=== PATIENT | female | born 1940 | race Caucasian/White ===

== ENCOUNTER 2018-01-11 11:40 | Day surgery (SDC) | payer MEDICARE ==
[~2018-01-11] VITALS: Ht 162.6 cm; Wt 86.7 kg
[~2018-01-11 11:40] MED LIST: ASPI81CH; GLUCOSAMINE1000 MG; K-Dur20 MEQ; METFORMIN HCL500 MG; MYRBETRIQ25 MG; NAPR220; Triamterene W/1 EACH
== END 2018-01-11 14:24 | disposition home or self-care (01) ==
LOC: ORSCSDS 11:40
PROVIDERS: Orthopaedic Surgery
PROC: 3E0R33Z Introduction of Anti-inflammatory into Spinal Canal, Percutaneous Approach (ICD-10-PCS; principal; 2018-01-11 13:00)
DX: M51.16 Intervertebral disc disorders with radiculopathy, lumbar region (principal); M48.061 Spinal stenosis, lumbar region without neurogenic claudication; E11.9 Type 2 diabetes mellitus without complications; I10 Essential (primary) hypertension; Z87.891 Personal history of nicotine dependence; E66.9 Obesity, unspecified; Z68.39 Body mass index [BMI] 39.0-39.9, adult; Z79.82 Long term (current) use of aspirin; Z79.899 Other long term (current) drug therapy
CPT/HCPCS: J1040

== ENCOUNTER → 2018-11-29 | Outpatient (CLI) | payer MEDICARE ==
[~2018-11-29] MED LIST changes: +Aspir 8181 MG PO; +CALCIUM CITRAT1 EAC3 PO; +CLOB.05TO; +Dyazide 37.5-21 EACH PO; +GABA300 PO; +Glucosamine &1 EACH PO; +K-Dur20 MEQ PO; +METF500C PO; +MYRBETRIQ50 MG PO; +NAPR220 PO
== END | disposition home or self-care (01) ==
LOC: PLD 07:17 → LAB SHORT 07:17
DX: D04.0 Carcinoma in situ of skin of lip (principal)
CPT/HCPCS: 88305

== ENCOUNTER → 2019-01-28 | Outpatient (CLI) | payer MEDICARE | END | disposition home or self-care (01) | LOC: PLD 08:43 → LAB SHORT 08:43 | DX: D48.5 Neoplasm of uncertain behavior of skin (principal) | CPT/HCPCS: 88305 ==

== ENCOUNTER → 2019-02-07 | Outpatient (CLI) | payer MEDICARE | END | disposition home or self-care (01) | LOC: LAB SHORT 07:38 → PLD 07:38 → LAB SHORT 02-08 07:38 | DX: D04.0 Carcinoma in situ of skin of lip (principal) | CPT/HCPCS: 88305 ==

== ENCOUNTER 2019-05-01 12:25 | Day surgery (SDC) | payer MEDICARE ==
[~2019-05-01] VITALS: Ht 160 cm; Wt 83.9 kg
--- NOTE | 2019-05-01 13:36 | NUR ---
05/01/19 5999 Lara Orozco PT RESTING COMFORTABLY IN BED, CALL LIGHT WITHIN REACH. FAMILY AT BEDSIDE. DENIES NEEDS AT THIS TIME.
== END 2019-05-01 15:00 | disposition home or self-care (01) ==
LOC: ORSCSDS 12:25
PROVIDERS: Ophthalmology
PROC: 080PXZZ Alteration of Left Upper Eyelid, External Approach (ICD-10-PCS; principal; 2019-05-01 14:00)
PROC: 080NXZZ Alteration of Right Upper Eyelid, External Approach (ICD-10-PCS; principal; 2019-05-01 14:00)
DX: H02.831 Dermatochalasis of right upper eyelid (principal); H02.834 Dermatochalasis of left upper eyelid; E11.9 Type 2 diabetes mellitus without complications; Z87.891 Personal history of nicotine dependence; Z79.84 Long term (current) use of oral hypoglycemic drugs; E66.9 Obesity, unspecified; Z68.32 Body mass index [BMI] 32.0-32.9, adult
CPT/HCPCS: 82947; J0171; J2250; J2704; J3010; J7120

== ENCOUNTER → 2019-12-16 | Outpatient (CLI) | payer MEDICARE ==
[2019-12-16 13:29] LABS: BASOPHILS ABSOLUTE AUTO 0.06 K/mm3 (0.00-0.23); BASOPHILS PERCENT AUTO 1 % (0-2); EOSINOPHILS ABSOLUTE AUTO 0.18 K/mm3 (0.00-0.68); EOSINOPHILS PERCENT AUTO 2 % (0-6); Hematocrit 43.4 % (33.0-51.0); IMMATURE GRAN ABSOLUTE AUTO 0.01 K/mm3 (0.00-0.10); IMMATURE GRAN PERCENT AUTO 0 % (0-1); LYMPHOCYTES ABSOLUTE AUTO 1.67 K/mm3 (0.84-5.20); LYMPHOCYTES PERCENT AUTO 20 % (21-46); MONOCYTES PERCENT AUTO 10 % (4-13); Mean Corpuscular HGB 30.4 pg (26.0-34.0); Mean Corpuscular HGB Conc 32.3 g/dL (31.5-36.5); Mean Corpuscular Volume 94 fL (80-100); Mean Platelet Volume 11.8 fL (9.1-12.4); NEUTROPHILS ABSOLUTE AUTO 5.63 K/mm3 (1.96-9.15); NEUTROPHILS PERCENT AUTO 67 % (41-73); Platelet Count 232 K/mm3 (150-400); RDW Coefficient Variation 13.2 % (11.7-14.2); RDW Standard Deviation 45.1 fL (35.1-46.3); Red Blood Cell Count 4.61 M/mm3 (3.80-5.20); White Blood Cell Count 8.35 K/mm3 (4.00-11.30)
[2019-12-16 13:39] LABS: CHOL/HDL RATIO 2.5; Cholesterol 142 mg/dL (50-200); HDL Cholesterol 56 mg/dL (>39); Low Density Lipoprotein Chol 57 mg/dL (0-110); Triglycerides 145 mg/dL (30-160); Very Low Density Lipoprot Chol 29 mg/dL (6-32)
[2019-12-16 13:48] LABS: Alanine Aminotransfer (ALT/SGP 34 U/L (12-78); Albumin, Blood 3.4 g/dL (3.4-5.0); Albumin/Globulin Ratio 0.9 (0.8-1.8); Alk Phos 69 U/L (50-136); Anion Gap 7 mmol/L (6-16); Aspartate Aminotrans (AST/SGOT 32 U/L (12-37); Bilirubin, Total 0.4 mg/dL (0.1-1.0); Blood Urea Nitrogen 21 mg/dL (8-24); Bun/Creatinine Ratio 26.9 (12.0-20.0); CO2, Blood 27 mmol/L (21-32); Calcium, Blood 8.7 mg/dL (8.5-10.1); Chloride, Blood 106 mmol/L (98-108); Creatinine, Blood 0.78 mg/dL (0.40-1.00); Globulin, Blood 3.7 g/dL (2.2-4.0); Glomerular Filtration Rate >60 (60-); Glucose, Blood 150 mg/dL (70-99); Potassium, Blood 3.4 mmol/L (3.5-5.5); Sodium, Blood 140 mmol/L (136-145); Total Protein, Blood 7.1 g/dL (6.4-8.2)
== END | disposition home or self-care (01) ==
LOC: LAB SHORT 10:10 → LAB 10:10
PROVIDERS: Family Medicine
DX: E87.6 Hypokalemia (principal); E11.9 Type 2 diabetes mellitus without complications; D64.9 Anemia, unspecified
CPT/HCPCS: 80053; 80061; 83036; 85025

== ENCOUNTER → 2019-12-17 | Outpatient (CLI) | payer MEDICARE | END | disposition home or self-care (01) | LOC: LAB 12:49 → LAB SHORT 12:49 | DX: E11.9 Type 2 diabetes mellitus without complications (principal) | CPT/HCPCS: 82043 ==

== ENCOUNTER → 2020-06-15 | Outpatient (CLI) | payer MEDICARE | LOC: LAB 11:09 → LAB SHORT 11:09 | DX: E11.9 Type 2 diabetes mellitus without complications (principal); R30.0 Dysuria | CPT/HCPCS: 36415; 83036; 87077; 87086; 87186 ==

== ENCOUNTER → 2022-01-21 | Outpatient (CLI) | payer MEDICARE | END | disposition home or self-care (01) | LOC: LAB SHORT 12:18 | DX: E11.9 Type 2 diabetes mellitus without complications (principal) | CPT/HCPCS: 82043 ==

== ENCOUNTER → 2022-12-12 | Outpatient (CLI) | payer MEDICARE ==
[~2022-12-12] MED LIST changes: +CEPH500 PO
== END | disposition home or self-care (01) ==
LOC: LAB 12:00 → LAB SHORT 12:00
DX: R30.0 Dysuria (principal)
CPT/HCPCS: 87077; 87086; 87186

== ENCOUNTER → 2022-12-23 | Outpatient (CLI) | payer MEDICARE | END | disposition home or self-care (01) | LOC: LAB SHORT 12:21 → LAB 12:21 | DX: R30.0 Dysuria (principal) | CPT/HCPCS: 87086 ==

== ENCOUNTER → 2023-09-05 | Outpatient (CLI) | payer MEDICARE | LOC: LAB 12:13 → LAB SHORT 12:13 | DX: R30.0 Dysuria (principal) | CPT/HCPCS: 87077; 87086; 87186 ==

== ENCOUNTER → 2023-09-13 | Outpatient (CLI) | payer MEDICARE | END | disposition home or self-care (01) | LOC: LAB SHORT 17:00 → LAB 17:00 | DX: R30.0 Dysuria (principal) | CPT/HCPCS: 87077; 87086; 87186 ==

== ENCOUNTER 2024-04-18 08:47 | Day surgery (SDC) | payer MEDICARE ==
[~2024-04-18] VITALS: Ht 162.6 cm; Wt 78.4 kg
[~2024-04-18 08:47] MED LIST changes: +Balanced Salt Epinephrine Irrigation Solution 500 mL IR SCH; +Lidocaine HCl/Pf 1% 5 ML VIAL XX SCH; +Moxifloxacin HCL 0.5 MG/0.1 ML 0.4MLSYR RIGHTEYE SCH; +NS 500 ML IV ONE; +PHENYLEPHRINE\\TROPICAMIDE\\TETRACAINE OPHTHALMIC DILATING SOLN RIGHTEYE PRN; +Povidone-Iodine 450 DROP/30 ML Solution RIGHTEYE SCH; +Triamcinolone Inj Susp 40 MG / ML 1ML Vial INJ SCH; +Triamcinolone Inj Susp 40 MG / ML 1ML Vial ONE
[2024-04-18] MEDS ORDERED: B12-FOLIC ACID1 EACH (09:18)
[2024-04-18] MEDS ORDERED: Lactated Ringer's 1,000 ML IV ONE (09:20)
[2024-04-18] MEDS ORDERED: Midazolam HCl 1MG / ML 2ML Vial ONE (09:33)
[2024-04-18] MEDS ORDERED: FentaNYL Citrate 50 MCG/ML 2 ML Injection ONE (09:35)
[2024-04-18] MEDS ORDERED: NS 500 ML IV ONE (09:44)
--- NOTE | 2024-04-18 11:48 | NUR ---
04/18/24 1148 Isaías Win PT INSTRUCTED TO MONITOR B/P AT HOME AND FOLLOW UP WITH PCP NEEDED.
[2024-04-18 11:49] VITALS: BP 107/57
== END 2024-04-18 10:16 | disposition home or self-care (01) ==
LOC: ORSCSDS 08:47
PROVIDERS: Ophthalmology
PROC: 08RJ3JZ Replacement of Right Lens with Synthetic Substitute, Percutaneous Approach (ICD-10-PCS; principal; 2024-04-18 10:00)
DX: E11.36 Type 2 diabetes mellitus with diabetic cataract (principal); H25.813 Combined forms of age-related cataract, bilateral; F41.9 Anxiety disorder, unspecified; F32.A Depression, unspecified; K21.9 Gastro-esophageal reflux disease without esophagitis; I10 Essential (primary) hypertension; Z79.82 Long term (current) use of aspirin; Z79.899 Other long term (current) drug therapy
CPT/HCPCS: J2250; J3010; J3301; J7040; J7120; V2632

== ENCOUNTER → 2025-02-11 | Outpatient (CLI) | payer MEDICARE ==
[~2025-02-11] MED LIST changes: +B-12500 MC2 PO; +B12-FOLIC ACID1 EACH; -Balanced Salt Epinephrine Irrigation Solution 500 mL IR SCH; +CALCIUM; +LOSARTAN POTASS25 M2 PO; -Lidocaine HCl/Pf 1% 5 ML VIAL XX SCH; -Moxifloxacin HCL 0.5 MG/0.1 ML 0.4MLSYR RIGHTEYE SCH; -NS 500 ML IV ONE; -PHENYLEPHRINE\\TROPICAMIDE\\TETRACAINE OPHTHALMIC DILATING SOLN RIGHTEYE PRN; +PREVAGEN; -Povidone-Iodine 450 DROP/30 ML Solution RIGHTEYE SCH; +SUPER B-50 COM1 EACH; +THERA-D2000 UNIT PO; -Triamcinolone Inj Susp 40 MG / ML 1ML Vial INJ SCH; -Triamcinolone Inj Susp 40 MG / ML 1ML Vial ONE; +ZINC15 PO; +ZOLOFT25 MG PO
== END ==
LOC: LAB 09:00 → LAB SHORT 09:00
DX: R30.0 Dysuria (principal)
CPT/HCPCS: 87077; 87086; 87186

== ENCOUNTER → 2025-04-11 | Outpatient (CLI) | payer MEDICARE | END | disposition home or self-care (01) | LOC: LAB SHORT 11:38 → LAB 11:38 | DX: R30.0 Dysuria (principal) | CPT/HCPCS: 87077; 87086; 87186 ==

== ENCOUNTER → 2025-04-21 | Outpatient (CLI) | payer MEDICARE | LOC: LAB SHORT 09:00 → LAB 09:00 | DX: R30.0 Dysuria (principal) | CPT/HCPCS: 87086 ==

== ENCOUNTER → 2025-05-13 | Outpatient (CLI) | payer MEDICARE | LOC: LAB SHORT 18:18 → LAB 18:18 | DX: R30.0 Dysuria (principal) | CPT/HCPCS: 87086 ==